=== PATIENT | female | born 1975 | race Caucasian/White ===

== ENCOUNTER 2017-10-15 09:10 | Observation (INO) ==
[2017-10-15 09:35] LABS: Bilirubin,Urine Negative (Negative); Blood,Urine Large (Negative); Clarity,Urine Cloudy (Clear); Color,Urine Yellow (Yellow); Glucose,Urine (UA) Normal (Normal); Ketones,Urine Negative (Negative); Leukocyte Esterase,Urine Small (Negative); Nitrite,Urine Negative (Negative); Protein,Urine Trace mg/dL (Neg-Trace); Urobilinogen,Urine Normal (Normal)
--- NOTE | 2017-10-15 09:36 | Emergency Department Note ---
Disposition Clinical Impression: Cholecystitis Abdominal pain Qualifiers: Abdominal location: right upper quadrant Qualified Code(s): R10.11 - Right upper quadrant pain Disposition: Admitted As Inpatient Condition: Fair Time of Disposition: 18:00 Abdominal Pain HPI - General Chief Complaint: ED Abdominal Pain Stated Complaint: ABD Pain Time Seen by Provider: 10/15/17 09:11 Source: patient, family Mode of arrival: ambulatory Limitations: no limitations Nursing Notes Reviewed: Yes Vital Signs Reviewed: Yes - History of Present Illness HPI Narrative: Mrs. Olguin is a 41-year-old woman with history of cholelithiasis who presents to the ED several hours history of severe upper abdominal pain. She said that the pain woke her from sleep between 2 AM and 3 AM, at which time she ate and the pain got progressively worse. She describes the pain as sharp, cramping and nausea and sensation, 8 out of 10 in severity, nonradiating. The pain is constant, Angel's worsened by significant movement, sitting, lying down and food. She has taken ibuprofen for this which has not been helpful. Says the pain is similar to the experience of cholelithiasis several years ago which resolved spontaneously. She denies any nausea or vomiting, she denies any constipation or diarrhea. She has not had any blood in her stool or unusually dark stools recently. She denies any abdominal surgeries previously. She is not had any fevers, chills, sweats. She does say that she's had some blood in her urine this morning and on the tissue while whiping, and she has been unable to urinate since arriving. She is feeling a sensation of pressure in her lower abdomen. She has no other acute complaints at this time. Pain Scale: 7 - Related Data Home Medications Medication Instructions Recorded Confirmed No Known Home Drugs 10/15/17 10/15/17 Allergies Allergy/AdvReac Type Severity Reaction Status Date / Time Sulfa (Sulfonamide Allergy Swelling Verified 10/15/17 09:13 Antibiotics) of Lip/Tongue/Throat Constitutional: Denies: fever, chills, night sweats Cardiovascular: Denies: chest pain, palpitations, dyspnea on exertion, edema Respiratory: Denies: cough Gastrointestinal: Reports: abdominal pain. Denies: nausea, vomiting, diarrhea, constipation, melena, hematochezia Genitourinary: Denies: urgency, dysuria, frequency Musculoskeletal: Denies: back pain Integumentary: Denies: rash Neurological: Denies: headache, weakness Endocrine: Denies: fatigue Hematological/Lymphatic: Denies: easy bleeding Abdominal Pain PMH - Past Medical History Medical history: Reports: no medical history Female Surgical History: Reports: no surgical history Psychiatric history: Reports: no psych history - Social History Smoking status: Never smoker Alcohol use: Reports: none Drug use: Reports: none Physical Exam Gen.: Vitals noted. No acute distress. AAOx3 HEENT: Normocephalic, atraumatic Neck: Supple. No adenopathy. Cardiac: RRR, no murmur, +S1/S2 Pulmonary: CTA bilaterally, no wheezes, rales or rhonchi, equal chest expansion Abdomen: soft, tenderness with facial wincing on palpation of the epigastric region, and voluntary guarding on palpation of the RUQ/+ Magallon's sign. Moderate tenderness to RLQ palpation. No masses felt. Neuro: A&Ox3, moves all extremities, no focal deficits Psych: Appropriate mood and behavior - General Limitations: no limitations General appearance: alert, in no apparent distress Course Vital Signs Temperature 97.5 F L 10/15/17 09:13 Pulse Rate 79 10/15/17 09:13 Respiratory Rate 16 10/15/17 09:13 Blood Pressure 164/89 10/15/17 09:13 O2 Sat by Pulse Oximetry 100 10/15/17 09:13 Temperature 97.9 F 10/15/17 19:16 Pulse Rate 67 10/15/17 19:16 Respiratory Rate 15 10/15/17 19:16 Blood Pressure 123/74 10/15/17 19:16 O2 Sat by Pulse Oximetry 97 10/15/17 19:16 Oxygen Delivery Oxygen Delivery Room Air Abdominal Pain - MDM Narrative Medical decision making narrative: Reviewed the patient's labs and imaging. Based on the patient's clinical presentation I was concerned about the prospect of cholecystitis or appendicitis. The patient has not had any intra-abdominal surgeries and is unlikely to have bowel obstruction. Did get a CT of the abdomen which demonstrated a gallstone in the neck of the gallbladder as well as some pericholecystic fluid. The patient's vital signs remained relatively stable as she was minimally tachycardic throughout her stay, but her pain level was challenging to control NSAIDs and levsin. I did get a follow-up ultrasound of the gallbladder which demonstrated again a stone in the neck of the gallbladder with some sludge. I spoke with the on-call surgeon Dr. Barnes who agreed to admit the patient to his service for acute cholecystitis. The patient understood and agreed to this plan. - Medical Records Medical records reviewed: Yes I reviewed the patient's medical records. - Lab Data Lab results reviewed: Yes I reviewed the patient's lab results. Result diagrams: 10/15/17 09:47 10/15/17 09:47 Lab Results 10/15/17 10/15/17 10/15/17 Range/Units 09:24 09:27 09:47 WBC 8.8 (4.3-11.1) K/mcL RBC 4.34 (3.82-4.97) M/mcL Hgb 12.7 (11.5-15.4) g/dL Hct 37.7 (35.3-44.9) % MCV 86.9 (83.0-100.0) fL MCH 29.3 (28.0-33.3) pg MCHC 33.7 (31.6-35.5) g/dL RDW 12.6 (11.5-14.5) % Plt Count 231 (140-400) K/mcL MPV 10.4 (9.4-12.4) fL Immature Gran % 0.7 (0-4) % Seg Neutrophils % 56.0 % Lymphocytes % 33.1 % Monocytes % 6.1 % Eosinophils % 3.9 % Basophils % 0.2 % Neutrophils # 4.9 (1.6-8.9) K/mcL Lymphocytes # 2.9 (0.6-4.6) K/mcL Monocytes # 0.5 (0.0-1.3) K/mcL Eosinophils # 0.3 (0.0-0.6) K/mcL Basophils # 0.0 (0.0-0.2) K/mcL Sodium (136-145) mEq/L Potassium (3.5-5.1) mEq/L Chloride (98-107) mEq/L Carbon Dioxide (23-29) mEq/L BUN (6-20) mg/dL Creatinine (0.60-1.20) mg/dL Est GFR ( Amer) (> 60) Est GFR (Non-Af Amer) (> 60) BUN/Creatinine Ratio (6-26) Glucose (70-105) mg/dL Calculated Osmolality (280-300) Lactic Acid (0.5-2.2) mmol/L Calcium (8.6-10.3) mg/dL Total Bilirubin (0.3-1.0) mg/dL Direct Bilirubin (0.0-0.2) mg/dL Indirect Bilirubin (0.0-1.2) mg/dL AST (13-39) Units/L ALT (7-52) Units/L Alkaline Phosphatase (34-104) Units/L Troponin I (< 0.04) ng/mL Serum Total Protein (6.4-8.9) g/dL Albumin (3.5-5.7) g/dL Globulin (2.4-3.5) g/dL Albumin/Globulin Ratio (1.1-2.2) Amylase (29-103) Units/L Lipase (11-82) Units/L Urine Color Yellow (Yellow) Urine Clarity Cloudy A (Clear) Urine pH 6.0 (5.0-8.0) pH Units Ur Specific [place] 1.020 (1.010-1.025) Urine Protein Trace (Neg-Trace) mg/dL Urine Glucose (UA) Normal (Normal) mg/dL Urine Ketones Negative (Negative) mg/dL Urine Blood Large H (Negative) Urine Nitrite Negative (Negative) Urine Bilirubin Negative (Negative) Urine Urobilinogen Normal (Normal) mg/dL Ur Leukocyte Esterase Small H (Negative) Urine Microscopic RBC TNTC H (0-3) per hpf Urine Microscopic WBC 0-3 (0-3) per hpf Ur Squamous Epith Cells Many H (None-Few) per lpf Urine Bacteria None Seen (None-Few) per hpf Hyaline Casts None Seen (None-Few) per lpf Ur Culture Indicated? NO. (NO) Urine Test Negative (Negative) 10/15/17 10/15/17 10/15/17 Range/Units 09:47 09:47 09:47 WBC (4.3-11.1) K/mcL RBC (3.82-4.97) M/mcL Hgb (11.5-15.4) g/dL Hct (35.3-44.9) % MCV (83.0-100.0) fL MCH (28.0-33.3) pg MCHC (31.6-35.5) g/dL RDW (11.5-14.5) % Plt Count (140-400) K/mcL MPV (9.4-12.4) fL Immature Gran % (0-4) % Seg Neutrophils % % Lymphocytes % % Monocytes % % Eosinophils % % Basophils % % Neutrophils # (1.6-8.9) K/mcL Lymphocytes # (0.6-4.6) K/mcL Monocytes # (0.0-1.3) K/mcL Eosinophils # (0.0-0.6) K/mcL Basophils # (0.0-0.2) K/mcL Sodium 138 (136-145) mEq/L Potassium 4.6 (3.5-5.1) mEq/L Chloride 105 (98-107) mEq/L Carbon Dioxide 26 (23-29) mEq/L BUN 16 (6-20) mg/dL Creatinine 0.82 (0.60-1.20) mg/dL Est GFR ( Amer) > 60 (> 60) Est GFR (Non-Af Amer) > 60 (> 60) BUN/Creatinine Ratio 20 (6-26) Glucose 121 H (70-105) mg/dL Calculated Osmolality 288 (280-300) Lactic Acid 1.3 (0.5-2.2) mmol/L Calcium 10.2 (8.6-10.3) mg/dL Total Bilirubin 0.3 (0.3-1.0) mg/dL Direct Bilirubin 0.1 (0.0-0.2) mg/dL Indirect Bilirubin 0.2 (0.0-1.2) mg/dL AST 22 (13-39) Units/L ALT 23 (7-52) Units/L Alkaline Phosphatase 65 (34-104) Units/L Troponin I < 0.03 (< 0.04) ng/mL Serum Total Protein 7.8 (6.4-8.9) g/dL Albumin 4.0 (3.5-5.7) g/dL Globulin 3.8 H (2.4-3.5) g/dL Albumin/Globulin Ratio 1.1 (1.1-2.2) Amylase 34 (29-103) Units/L Lipase 32 (11-82) Units/L Urine Color (Yellow) Urine Clarity (Clear) Urine pH (5.0-8.0) pH Units Ur Specific [place] (1.010-1.025) Urine Protein (Neg-Trace) mg/dL Urine Glucose (UA) (Normal) mg/dL Urine Ketones (Negative) mg/dL Urine Blood (Negative) Urine Nitrite (Negative) Urine Bilirubin (Negative) Urine Urobilinogen (Normal) mg/dL Ur Leukocyte Esterase (Negative) Urine Microscopic RBC (0-3) per hpf Urine Microscopic WBC (0-3) per hpf Ur Squamous Epith Cells (None-Few) per lpf Urine Bacteria (None-Few) per hpf Hyaline Casts (None-Few) per lpf Ur Culture Indicated? (NO) Urine Test (Negative) - Radiology Data Radiology results reviewed: Yes I reviewed the patient's radiology results. - EKG Data EKG attestation: Yes I reviewed and interpreted this EKG. EKG results narrative: EKG demonstrated sinus rhythm with a rate of 60 CO interval 134 QRS duration 92 TC 394 with no evidence of acute ischemia
[2017-10-15 09:38] LABS: Bacteria,Urine None Seen per hpf (None-Few); Hyaline Casts,Urine None Seen per lpf (None-Few); RBC,Urine TNTC per hpf (0-3); Squamous Epithelial Cell,Urine Many per lpf (None-Few); WBC,Urine 0-3 per hpf (0-3)
[2017-10-15 10:00] LABS: Basophils % 0.2 %; Eosinophils # 0.3 K/mcL (0.0-0.6); Eosinophils % 3.9 %; Hematocrit 37.7 % (35.3-44.9); Hemoglobin 12.7 g/dL (11.5-15.4); Immature Granulocytes % 0.7 % (0-4); Lymphocytes # 2.9 K/mcL (0.6-4.6); Lymphocytes % 33.1 %; Mean Corpuscular HGB Conc 33.7 g/dL (31.6-35.5); Mean Corpuscular Hemoglobin 29.3 pg (28.0-33.3); Mean Corpuscular Volume 86.9 fL (83.0-100.0); Mean Platelet Volume 10.4 fL (9.4-12.4); Monocytes # 0.5 K/mcL (0.0-1.3); Monocytes % 6.1 %; Neutrophils # 4.9 K/mcL (1.6-8.9); Platelet Count 231 K/mcL (140-400); Red Blood Count 4.34 M/mcL (3.82-4.97); Red Cell Distribution Width 12.6 % (11.5-14.5)
[2017-10-15 10:12] LABS: Alanine Aminotransferase 23 Units/L (7-52); Albumin/Globulin Ratio 1.1 (1.1-2.2); Alkaline Phosphatase 65 Units/L (34-104); Amylase 34 Units/L (29-103); Aspartate Amino Transferase 22 Units/L (13-39); BUN/Creatinine Ratio 20 (6-26); Bilirubin,Direct 0.1 mg/dL (0.0-0.2); Bilirubin,Indirect 0.2 mg/dL (0.0-1.2); Bilirubin,Total 0.3 mg/dL (0.3-1.0); Blood Urea Nitrogen 16 mg/dL (6-20); Calcium 10.2 mg/dL (8.6-10.3); Carbon Dioxide 26 mEq/L (23-29); Chloride 105 mEq/L (98-107); Globulin 3.8 g/dL (2.4-3.5); Glucose 121 mg/dL (70-105); Lipase 32 Units/L (11-82); Osmolality,Calculated 288 (280-300); Potassium 4.6 mEq/L (3.5-5.1); Sodium 138 mEq/L (136-145); Total Protein 7.8 g/dL (6.4-8.9); eGFR For African Americans > 60 (> 60); eGFR For Non-African Americans > 60 (> 60)
[2017-10-15] MEDS ORDERED: Hyoscyamine 0.5 MG/ML MLS IM ONE (10:59)
--- NOTE | 2017-10-15 11:00 | Emergency Department Note ---
START Narrative - START START: I examined this patient and my medical decision-making was reviewed with the Resident Physician. I agree with the documented findings, disposition and treatment plan as described except to the extent set forth below. 41 year old femae with HX of gallstones [facility] hav[facility] increased RUQ/epigastric pain but it now improving and is concerned that it is her galbladder again. Patinet states she has been nauseated although not vomiting and no fevers or altered mental status. vital signs stable. abdominla labs are benign. We are waiting on aBCT with IV contrast to rule out acute minda. We will give her levsin for therapy and likely discharge her home with followup wi surgery for HIDA Scan.
[2017-10-15] MEDS ORDERED: Ondansetron 4 MG/2 ML VIAL IVP PRN (19:24)
[2017-10-15] MEDS ORDERED: Acetaminophen 325 MG TABLET PO PRN (19:24)
[2017-10-15] MEDS ORDERED: *HR* HYDROmorphone (PF) 1 MG/ML SYRINGE IVP PRN (19:24)
--- NOTE | 2017-10-15 19:42 | General Surg History&Physical ---
Date of Encounter: 10/15/17 Time of Encounter: 19:29 History of Present Illness Chief complaint: Right upper quadrant abdominal pain, cholelithiasis, biliary colic HPI: Ms. Olguin is a 41 year old female admitted after presenting to the [facility] Emergency Department earlier today with several hours of severe upper abdominal pain. Patient indicates that the pain awakened her from sleep sometime between 0200 and 0300. The pain was located in the right upper quadrant, progressed in severity, and had become continuous vomiting the patient to seek further medical attention at [facility] The patient has known cholelithiasis but up to the present she has been minimally symptomatic. The patient denies any fevers, chills, jaundice, nausea or vomiting. Laboratories were completely unremarkable but a CT abdomen/pelvis demonstrated diffuse gallbladder wall thickening with a calcified stone within the gallbladder neck. Small amount of pericholecystic fluid was also described. An ultrasound of the gallbladder demonstrated findings consistent with hepatic steatosis, a nonmobile stone within the gallbladder neck with additional sludge. The gallbladder wall was thickened to approximately 5 mm. A small amount of pericholecystic fluid was also evidence sonographically. Based on these findings on the patient's continued pain following presentation to the emergency department, the patient was admitted for further management and to schedule surgery. Past medical history: Unremarkable Surgical history: None Allergies: Sulfa Medications: Patient takes no routine meds at home Social history: Patient is , G2, P1, Ab1; patient admits to smoking less than a half a pack of cigarettes for 15 years. She quit many years ago. She does not consume alcohol or use illicit drugs. Family history: notable for heart disease. Physical examination: Overweight, age-appropriate woman resting comfortably in her hospital bed. She is in no acute distress but indicates she still has right upper quadrant tenderness. The patient is 1.68 m tall, 103.42 kg, BMI 36.8. The patient has been afebrile, most recently 97.9, pulse 67, respirations 15, blood pressure 123/74. SPO2 on room air 97% Skin: Warm, no obvious jaundice Cardiac: Regular rate, no appreciable murmurs Lungs: Clear bilaterally; no obvious pain on deep inspiration (patient indicates she did have pain on inspiration while in the emergency department) Abdomen: Obese, soft, minimally tender in the right upper quadrant with no discernible hepatosplenomegaly or intra-abdominal masses. No obvious rebound. Hypoactive bowel sounds. Extremities: No obvious clubbing, cyanosis, or edema. Laboratories: White count 8.8, hemoglobin 12.7, hematocrit 37.7; platelet count 231,000; differential within normal limits Electrolytes, BUN, creatinine within normal limits LFTs also normal- bilirubin 0.3, AST 22, ALT 23, alkaline phosphatase 65. Amylase and lipase 34 and 32 respectively Urine negative Urinalysis notable for TNTC red cells per high-powered field but this is most likely related to the patient's current menstruation; WBC 0-3/hpf Impression: 41-year-old female with known history of cholelithiasis presents to [facility] Emergency Room with new onset severe right upper quadrant abdominal pain. CT abdomen/pelvis and ultrasound gallbladder demonstrated a stone in the neck of the gallbladder with wall thickening and a small amount of pericholecystic fluid. These findings are consistent with acute cholecystitis, cholelithiasis and biliary colic. Plan: Patient admitted for observation for continued monitoring and management of the patient's abdominal pain. Surgery planned for a.m. The patient will be permitted clear liquids until midnight; IV fluids, IV narcotic analgesics, and antiemetics will be provided as needed. The patient is a reasonable candidate for laparoscopic cholecystectomy but understands an open cholecystectomy may become necessary. Risks of surgery include hemorrhage, infection, intra-abdominal abscess , bile leak, injury to adjacent ducts, vessels, organs, bowel. Possible postcholecystectomy diarrhea was also discussed. I attempted to answer all of the patient's questions. Consent for surgery has been obtained. Past Med Surg Social Fam HX - Past Medical History Medical history: no medical history Psychiatric history: no psych history - Social History Smoking Status: Never smoker Smokeless Tobacco Status: No Alcohol use: none Drug use: none Medications and Allergies No Known Home Drugs 10/15/17 [History] 3 Allergy/AdvReac Type Severity Reaction Status Date / Time Sulfa (Sulfonamide Allergy Swelling Verified 10/15/17 09:13 Antibiotics) of Lip/Tongue/Throat Review of Systems All systems PM: A 10-system review of systems was performed and is negative for pertinent findings except as documented above in the HPI. General Surgery Exam Initial Vital Signs Temp Pulse Resp BP Pulse Ox 97.5 F L 79 16 164/89 100 10/15/17 09:13 10/15/17 09:13 10/15/17 09:13 10/15/17 09:13 10/15/17 09:13 Results - Labs 10/15/17 09:47 10/15/17 09:47 Abnormal lab results Glucose 121 mg/dL (70-105) H 10/15/17 09:47 Globulin 3.8 g/dL (2.4-3.5) H 10/15/17 09:47 Urine Clarity Cloudy (Clear) A 10/15/17 09:27 Urine Blood Large (Negative) H 10/15/17 09:27 Ur Leukocyte Esterase Small (Negative) H 10/15/17 09:27 Urine Microscopic RBC TNTC per hpf (0-3) H 10/15/17 09:27 Ur Squamous Epith Cells Many per lpf (None-Few) H 10/15/17 09:27 All other labs normal.
[2017-10-15] MEDS: Ringers Solution, Lactated 1,000 ML IVC SCH (20:56)
[2017-10-16] MEDS: Ringers Solution, Lactated 1,000 ML IVC SCH (07:58)
--- NOTE | 2017-10-16 13:45 | Anesthesia Evaluation PreOp ---
Date of Encounter: 10/16/17 Time of Encounter: 14:54 - Past History Planned Operation: lap minda Cardiac History: Denies any Significant Hx Pulmonary History: Former smoker ANALYTICAL CLERK History: Denies Any Significant HX Other Medical History: Denies Any Significant HX Anesthesia History: Past Anesthesia (denies PSH) : No Test: Negative (10-15-17) Alcohol Use: none Drug use: none Medications and Allergies No Known Home Drugs 10/15/17 [History] 3 Allergy/AdvReac Type Severity Reaction Status Date / Time Sulfa (Sulfonamide Allergy Swelling Verified 10/15/17 09:13 Antibiotics) of Lip/Tongue/Throat - Meds/Allergy Pre-op Review Medications Reviewed: Yes Allergies Reviewed: Yes Beta Blockers on Current Med List: No Anesthesia Results - Labs 10/15/17 09:47 10/15/17 09:47 Laboratory Tests 10/15/17 09:47 Hgb 12.7 Hct 37.7 Anesthesia Exam Selected Entries 10/16/17 11:03 Temperature 97.8 F Pulse Rate 68 Blood Pressure 114/67 O2 Sat by Pulse Oximetry 95 Weight: 104kg NPO (# of Hours): 8 - HEENT Pupil (Motor): EOMI Mallampati: II Teeth: Normal Oral Opening: Greater than 3 - ANALYTICAL CLERK LOC: Oriented ANALYTICAL CLERK Motor: Normal RUE, Normal LUE, Normal RLE, Normal LLE, Normal Face ANALYTICAL CLERK Sensory: Normal: RUE, LUE, RLE, LLE, Face - Cardiac Rhythm: Regular Murmur: None - Pulmonary Breath Sounds: bilateral Clear Respiratory Effort: Symmetrical Anesthesia Assess/Plan ASA Score: 1 Modified Diana Scale for Level of Consciousness: Cooperative, oriented, and tranquil Anesthetic Plan: General Monitoring Plan: Standard Monitors Recovery Plan: PACU (agrees to GA)
--- NOTE | 2017-10-16 14:04 | Electrocardiograph Report ---
[place] [id number] Test Date: 2017-10-15 Pat Name: He Olguin Department: 102 Room: 3A34 Gender: F Debone Supervisor: Mitchell : 1975 Requested By: Vikas Doyle Order Number: [id number] Reading MD: Urmila Goodson Measurements Intervals [place] Rate: 60 P: 62 NJ: 134 QRS: 27 QRSD: 90 T: 37 QT: 392 QTc: 394 Interpretive Statements SINUS RHYTHM SHORT NJ INTERVAL Electronically Signed On 10-16-2017 14:02:23 EST by Urmila Goodson
[2017-10-16] MEDS ORDERED: *HR* FentaNYL (PF) 100 MCG/2 ML VIAL ONE (14:37)
[2017-10-16] MEDS ORDERED: *HR* Propofol 200 MG/20 ML VIAL IVP ONE (14:37)
[2017-10-16] MEDS ORDERED: Lidocaine -MPF 2% 2 ML VIAL ONE (14:37)
[2017-10-16] MEDS ORDERED: Dexamethasone 4 MG/ML VIAL ONE (14:37)
[2017-10-16] MEDS ORDERED: *HR* Succinylcholine 200 MG/10 ML VIAL IVP ONE (14:37)
[2017-10-16] MEDS ORDERED: Ondansetron 4 MG/2 ML VIAL ONE (14:37)
[2017-10-16] MEDS ORDERED: *HR* EPINEPHrine 30 MG/30 ML MDV ONE (14:39)
[2017-10-16] MEDS ORDERED: Lidocaine -MPF 4% 5 ML AMPUL ONE (14:55)
[2017-10-16] MEDS ORDERED: Neostigmine Methylsulfate 3 MG/3 ML SYRINGE ONE (15:22)
[2017-10-16] MEDS ORDERED: *HR* Promethazine 25 MG/ML VIAL IVP PRN (15:24)
[2017-10-16] MEDS ORDERED: *HR* HYDROmorphone (PF) 1 MG/ML SYRINGE IVP PRN ×2 (15:24→16:43)
[2017-10-16] MEDS ORDERED: EPHEDrine 50 MG/ML VIAL ONE (15:26)
[2017-10-16] MEDS ORDERED: *HR* HYDROmorphone 2 MG/ML SYRINGE ONE (15:35)
[2017-10-16] MEDS ORDERED: Ringers Solution, Lactated 500 ML IVC ONE (16:43)
[2017-10-16] MEDS ORDERED: *HR* OxyCODONE/APAP 5/325 TABLET PO PRN (16:43)
[2017-10-16] MEDS ORDERED: Ringers Solution, Lactated 1,000 ML IVC SCH (16:46)
[2017-10-16] MEDS ORDERED: Acetaminophen 325 MG TABLET PO PRN (16:46)
--- NOTE | 2017-10-16 16:55 | Operative Note ---
Date of procedure: 10/16/17 Pre-op diagnosis: RUQ abd pain, Acute cholecystitis, cholelithiasis, biliary colic Post-op diagnosis: same Procedure: Laparoscopic cholecystectomy Complications: None apparent Anesthesia: GETA Local Anesthetics: 0.25% Sensorcaine HCL SubQ (cc) (20 mL (18 mL 0.25% bupivicaine with 2 mL epinephrine 1 mg/mL)) Surgeon: Marquez Barnes Was there an yard assistant present: No Estimated blood loss (cc): 5 IV fluids (cc): 1,300 Specimen: gallbladder Condition: stable Disposition: PACU Procedure in Detail: The patient was brought to the operating room where she was placed supine upon the operating table. The patient was appropriately identified as to person and procedure. The accuracy of this information was confirmed by the procedure team. The operative consent was reviewed and found to be accurate. The patient was then intubated and anesthetized under the supervision of Dr. Pat Zarate. The abdomen was prepped and draped in usual sterile fashion. Several milliliters of 0.25% bupivacaine with epinephrine (a solution of 18 mL 0.25% bupivacaine with 2 mL epinephrine, 1 mg per mL) was infiltrated into the supraumbilical skin. A small transverse incision was made with dissection extended to the fascia. Additional bupivacaine with epinephrine was infiltrated. The fascia was grasped, elevated, and incised. An 11 mm Xcel port was established. The rigid laparoscope was placed within the obturator to visualize passage through the layers of the anterior abdominal wall. When the abdominal cavity was accessed, the obturator was replaced by the rigid laparoscope. The abdomen was insufflated with gaseous carbon dioxide. There was no obvious visible injury from establishing the port. Under direct visualization, 3 additional ports were placed along the right costal margin in the subxiphoid, midclavicular and anterior axillary line. Each of the sites was infiltrated with the bupivacaine with epinephrine solution. The bladder was grasped and retracted. Several adhesions of omentum required sharp dissection using the Ethicon harmonic dana. Duodenal adhesions were lysed using the endoscopic [place] dissectors. The cystic duct was identified, skeletonized, and clipped near the infundibulum of the gallbladder. 2 clips were applied distally. Cystic duct was then transected. Dissection identified and skeletonized the cystic artery. The cystic artery was clipped twice proximally and once distally before it was transected. The gallbladder was dissected from the liver bed using the Ethicon harmonic dana. The gallbladder was from the surrounding structures, it was placed in an endoscopic pouch and removed through the infraumbilical opening. The gallbladder was retrieved and sent to pathology for analysis. A single stone was apparent in the infundibulum of the gallbladder. The liver bed was inspected for adequate hemostasis. Patricia was applied to the gallbladder fossa to complete the hemostasis. Once adequate hemostasis was achieved, the pneumoperitoneum was evacuated and the instrumentation removed. The fascia of the supraumbilical port was closed with interrupted [id number] 0 Vicryl using S retractors. The skin edges were approximated with subcuticular 4-0 Vicryl. The incisions were sealed with Dermabond dermal adhesive. The patient was taken to recovery in stable condition. Needle, sponge, and instrument counts were correct at the close of case. Total volume of 0.25% bupivacaine with epinephrine was 20 mL.
--- NOTE | 2017-10-16 17:30 | Anesthesia Evaluation Post Op ---
Date of Encounter: 10/16/17 Time of Encounter: 17:08 - Vital Signs Vital Signs: Vital Signs/O2 Sat, Most Current Temp Pulse Resp BP Pulse Ox 98.1 F 76 12 114/60 93 10/16/17 17:01 10/16/17 17:01 10/16/17 17:01 10/16/17 17:01 10/16/17 17:01 - Lungs Lungs: Clear Ascult./Percussion - Airway Airway: Non-obstructed - Cardiovascular Regular Rate - Mental Status Mental Status: Alert & Oriented, Answers Appropriately - Pain Pain Scale: 3 Pain Scale used: Numeric (1 - 10) - Nausea Vomiting Nausea Vomiting: Not Present - Hydration Hydration: NPO, Has not voided - Discharge PostOp Status: Transfer Patient to floor
[2017-10-16 18:35] VITALS: BP 105/67
--- NOTE | 2017-10-16 18:43 | Discharge Summary ---
Outpatient Proc Discharge Plan - Plan Additional Instructions: Regular diet activities as tolerated, lifing limited to less than 20# Patient may shower, wash incisions with soap and water Tylenol, ibuprofen, Motrin, Advil, Aleve, etc. as needed for pain Prescription for Percocet 5/325, #10, one every 6 hours as needed for pain not relieved by Tylenol or other [id number] medications Follow-up my office, 10/23/17, patient to call office in a.m. to make this appointment. Prescriptions: OxyCODONE/APAP 5/325 [Percocet 5/325 MG] 1 each PO Q6H PRN #10 tablet PRN Reason: Pain Home Medications: Acetaminophen [Tylenol] 650 mg PO Q6H PRN tablet 10/16/17 [Rx] OxyCODONE/APAP 5/325 [Percocet 5/325 MG] 1 each PO Q6H PRN #10 tablet 10/16/17 [ Rx]
== END 2017-10-16 19:28 | disposition home or self-care (01) ==
LOC: EMEROO 09:10 → 3ANU 09:10
PROVIDERS: ADMIT Surgery; ATTEND Surgery